=== PATIENT | male | born 1970 | race Caucasian/White ===

== ENCOUNTER 2017-11-02 13:12 | Observation (INO) ==
[2017-11-02] MEDS ORDERED: SALINE FLUSH 10ml SYRINGE IV ONE (13:30)
[2017-11-02] MEDS ORDERED: MIDAZOLAM 2mg/2ml INJECTION IVP ONE (13:30)
[2017-11-02] MEDS ORDERED: FentaNYL 100 MCG/2 ML INJECTION IVP ONE (13:30)
--- OUTSIDE RECORDS SUMMARY | 2017-11-02 13:38 | External Medical Summary ---
:1970 Author Organization [email or web address] Care Team Providers Name Role Phone Joel Núñez Provider Role Unavailable Allergies No Known Allergies Problems Problem Type Condition Code Onset Dates Condition Status Problem Nondependent tobacco use disorder 305.1 Active Problem Hypertension, benign 401.1 Active Problem Unspecified venous (peripheral) 459.81 Active insufficiency Problem Type 2 diabetes mellitus without E11.9 Active complications Problem Essential (primary) hypertension I10 Active Problem Type 2 diabetes mellitus with E11.65 Active hyperglycemia Problem Morbid obesity 278.01 Active Problem Diabetes Mellitus Type 2, not stated 250.00 Active as uncontrolled Problem Other specified diabetes mellitus E13.9 Active without complications Problem Other anxiety states 300.09 Active Medications No Known Medications Results No Known Results Summary Purpose eClinicalWorks Submission
--- OUTSIDE RECORDS SUMMARY | 2017-11-02 13:38 | External Medical Summary ---
:1970 Author Organization [employer] Care Team Providers Name Role Quentin Batista Provider Role Unavailable Allergies, Adverse Reactions, Alerts Substance Reaction Event Type Codeine Phosphate nausea and vomiting Drug Allergy Problems Problem Type Condition Code Onset Dates Condition Status Assessment Morbid obesity 278.01 Active Assessment Nondependent tobacco use disorder 305.1 Active Problem Morbid obesity 278.01 Active Problem Diabetes Mellitus Type 2, not stated 250.00 Active as uncontrolled Problem Chronic airway obstruction, not 496 Active elsewhere classified Problem Nondependent tobacco use disorder 305.1 Active Assessment Diabetes Mellitus Type 2, not stated 250.00 Active as uncontrolled Problem Hypertension, benign 401.1 Active Problem Unspecified venous (peripheral) 459.81 Active insufficiency Medications Medication Code Code Instructions Start End Status Dosage System Date Date Glimepiride [facility] [address]-06 4 TAKE ONE TABLET BY MOUTH EVERY MORNING WITH BREAKFAST OR FIRST MAIN MEAL OF THE DAY Blood Glucose [facility] [address]-90 1 finger as Oct 04, as directed Meter directed 2013 Lisinopril [facility] [address]-12 20 MG Orally January 21, 1 tablet Once a day 2014 Metformin HCl [facility] 72852355178 1,000 TAKE ONE TABLET BY MOUTH WITH FOOD TWO TIMES A DAY Elaine Contour [facility] [address]-54 1 In Vitro Jun 13, as directed Next Test twice a day 2013 Lantus [facility] [address]-83 100 UNIT/ML 50 units SoloStar Subcutaneous daily at night Procedures Procedure Coding System Code Date [facility] visit New Patient CPT-4 G0466 January 30, 2015 [facility] visit Established Patient CPT-4 G0467 January 30, 2015 HEMOGLOBIN A1C, IN HOUSE CPT-4 19413 January 30, 2015 OFFICE VISIT, EST-LOW COMPLEXITY (15 MIN.) CPT-4 56300 January 30, 2015 Vital Signs Date/Time: January 30, 2015 Height 65 in Weight 401.5 lbs Temperature 97.8 F Blood Pressure Diastolic 88 mm Hg Blood Pressure Systolic 134 mm Hg Cardiac Monitoring Heart Rate 60 /min BMI 66.81 Index Respiratory Rate 20 /min Results No Known Results Summary Purpose eClinicalWorks Submission
--- OUTSIDE RECORDS SUMMARY | 2017-11-02 13:38 | External Medical Summary ---
:1970 Author Organization [employer] Care Team Providers Name Role Phone Joel Núñez Provider Role Unavailable Allergies, Adverse Reactions, Alerts Substance Reaction Event Type Codeine Phosphate nausea and vomiting Drug Allergy Problems Problem Type Condition ICD-9 Code Onset Dates Condition Status Assessment Umbilical hernia without mention 553.1 Active of obstruction or gangrene Assessment Other anxiety states 300.09 Active Problem Chronic airway obstruction, not 496 Active elsewhere classified Problem Morbid obesity 278.01 Active Problem Other anxiety states 300.09 Active Problem Unspecified venous (peripheral) 459.81 Active insufficiency Problem Nondependent tobacco use 305.1 Active disorder Problem Diabetes Mellitus Type 2, not 250.00 Active stated as uncontrolled Problem Hypertension, benign 401.1 Active Medications Medication Code Code Instructions Start End Status Dosage System Date Date Lisinopril [facility] [address]-81 20 MG Orally January 21, 1 tablet Once a day 2014 Glimepiride [facility] [address]-44 4 TAKE ONE TABLET BY MOUTH EVERY MORNING WITH BREAKFAST OR FIRST MAIN MEAL OF THE DAY Elaine Contour [facility] [address]-18 1 In Vitro Jun 13, as directed Next Test twice a day 2013 Metformin HCl [facility] 13120356665 1,000 TAKE ONE TABLET BY MOUTH WITH FOOD TWO TIMES A DAY Lantus [facility] [address]-12 100 UNIT/ML 40 units SoloStar Subcutaneous daily at morning Blood Glucose [facility] [address]-62 1 finger as Oct 04, as directed Meter directed 2013 Procedures Procedure Coding System Code Date OFFICE VISIT, EST-LOW COMPLEXITY (15 MIN.) CPT-4 80616 May 23, 2015 [facility] visit Established Patient CPT-4 G0467 May 23, 2015 Vital Signs Date/Time: May 23, 2015 Height 65 in Weight 398.0 lbs Temperature 98.0 F Blood Pressure Diastolic 84 mm Hg Blood Pressure Systolic 136 mm Hg Cardiac Monitoring Heart Rate 77 /min BMI 66.22 Index Oximetry 96 % Respiratory Rate 20 /min Results No Known Results Summary Purpose eClinicalWorks Submission
--- OUTSIDE RECORDS SUMMARY | 2017-11-02 13:38 | External Medical Summary ---
:1970 Author Organization [employer] Care Team Providers Name Role Phone Joel Núñez Provider Role Unavailable Allergies No Known Allergies Problems Problem Type Condition Code Onset Dates Condition Status Assessment Other specified diabetes mellitus E13.9 Active without complications Problem Other anxiety states 300.09 Active Problem Morbid obesity 278.01 Active Problem Other specified diabetes mellitus E13.9 Active without complications Problem Unspecified venous (peripheral) 459.81 Active insufficiency Problem Nondependent tobacco use disorder 305.1 Active Problem Diabetes Mellitus Type 2, not stated 250.00 Active as uncontrolled Problem Hypertension, benign 401.1 Active Medications Medication Code Code Instructions Start End Status Dosage System Date Date Elaine Contour [facility] [address]-23 1 In Vitro Jun 13, as directed Next Test twice a day 2013 Blood Glucose [facility] [address]-37 1 finger as Oct 04, as directed Meter directed 2013 Lisinopril [facility] [address]-66 20 MG Orally January 21, 1 tablet Once a day 2014 Lantus [facility] [address]-34 100 UNIT/ML 40 units SoloStar Subcutaneous daily at morning Metformin HCl [facility] 80774705798 1,000 Orally TAKE 1 TAB Twice a day, Pt WITH FOOD will need an TWO TIMES A appointment DAY within the next month at [facility] for future refills Glimepiride [facility] [address]-19 4 MG Orally TAKE ONE TABLET BY MOUTH EVERY MORNING WITH BREAKFAST OR FIRST MAIN MEAL OF THE DAY Procedures Procedure Coding System Code Date TSH CPT-4 83274 Nov 01, 2015 URINALYSIS WITH MICROSCOPIC CPT-4 31683 Nov 01, 2015 COMPLETE CBC W/AUTO DIFF WBC CPT-4 28935 Nov 01, 2015 Results No Known Results Summary Purpose eClinicalWorks Submission
--- OUTSIDE RECORDS SUMMARY | 2017-11-02 13:38 | External Medical Summary ---
:1970 Author Organization [employer] Care Team Providers Name Role Phone Joel Núñez Provider Role Unavailable Allergies No Known Allergies Problems Problem Type Condition Code Onset Dates Condition Status Problem Unspecified venous (peripheral) 459.81 Active insufficiency Problem Nondependent tobacco use disorder 305.1 Active Problem Essential (primary) hypertension I10 Active Problem Other specified diabetes mellitus E13.9 Active without complications Problem Type 2 diabetes mellitus without E11.9 Active complications Problem Diabetes Mellitus Type 2, not stated 250.00 Active as uncontrolled Problem Hypertension, benign 401.1 Active Problem Other anxiety states 300.09 Active Problem Morbid obesity 278.01 Active Medications Medication Code System Code Instructions Start End Date Status Dosage Date Acetic Acid [facility] 79989-531 2 % Otic three Jun 26, Jun 14, 3 drops into 8-41 times a day 2015 2015 affected ear Results No Known Results Summary Purpose eClinicalWorks Submission
--- OUTSIDE RECORDS SUMMARY | 2017-11-02 13:38 | External Medical Summary ---
:1970 Author Organization [employer] Care Team Providers Name Role Phone Quentin Lynn Provider Role Unavailable Allergies No Known Allergies Problems Problem Type Condition ICD-9 Code Onset Dates Condition Status Problem Morbid obesity 278.01 Active Problem Diabetes Mellitus Type 2, not 250.00 Active stated as uncontrolled Problem Chronic airway obstruction, not 496 Active elsewhere classified Problem Nondependent tobacco use 305.1 Active disorder Problem Hypertension, benign 401.1 Active Problem Unspecified venous (peripheral) 459.81 Active insufficiency Medications Medication Code System Code Instructions Start Date End Date Status Dosage Glimepiride [facility]NOTE 2] 59644-310 4 TAKE ONE 6-01 TABLET BY MOUTH EVERY MORNING WITH BREAKFAST OR FIRST MAIN MEAL OF THE DAY Results No Known Results Summary Purpose eClinicalWorks Submission
--- OUTSIDE RECORDS SUMMARY | 2017-11-02 13:38 | External Medical Summary ---
:1970 Author Organization [employer] Care Team Providers Name Role Phone Joel Núñez Provider Role Unavailable Allergies, Adverse Reactions, Alerts Substance Reaction Event Type Codeine Phosphate nausea and vomiting Drug Allergy Problems Problem Type Condition Code Onset Dates Condition Status Assessment Type 2 diabetes mellitus without E11.9 Active complications Problem Unspecified venous (peripheral) 459.81 Active [...] 300.09 Active Problem Morbid obesity 278.01 Active Assessment Abnormal results of liver function R94.5 Active studies Assessment Hyperlipidemia, unspecified E78.5 Active Assessment Essential (primary) hypertension I10 Active Medications Medication Code Code Instructions Start End Date Status [place] [address]-61 20 MG Orally January 21, 1 tablet 68-01 Once a day 2014 [place] [address]-25 4 MG Orally Once take one 56-01 a day tablet by mouth every morning with breakfast or first [place] [address]-07 1 In Vitro twice Jun 13, as directed Next Test 25 a day [place] [address]-13 1 finger as Oct 04, as directed Meter 03- directed 2013 Metformin HCl NDC 78399-46 1000 MG Orally take one 14-01 Twice a day tablet by mouth twice [place] [address]-35 100 UNIT/ML 10 units 19-05 Subcutaneous Once a day Procedures Procedure Coding System Code Date OFFICE VISIT, EST-LOW COMPLEXITY (15 MIN.) CPT-4 79644 May 12, 2016 [facility] visit Established Patient CPT-4 G0467 May 12, 2016 Vital Signs Date/Time: May 12, 2016 Temperature 98.2 F Height 65 in Weight 394.8 lbs Blood Pressure Diastolic 82 mm Hg Blood Pressure Systolic 122 mm Hg Cardiac Monitoring Heart Rate 87 /min BMI 65.69 Index Oximetry 95 % Results No Known Results Summary Purpose eClinicalWorks Submission
--- OUTSIDE RECORDS SUMMARY | 2017-11-02 13:38 | External Medical Summary ---
:1970 Author Organization [employer]Works Care Team Providers Name Role Phone Quentin Lynn Provider Role Unavailable Allergies No Known Allergies Problems Problem Type Condition Code Onset Dates Condition Status Problem Morbid obesity 278.01 Active Problem Diabetes Mellitus Type 2, not stated 250.00 Active as uncontrolled Problem Chronic airway obstruction, not 496 Active elsewhere classified Problem Nondependent tobacco use disorder 305.1 Active Problem Hypertension, benign 401.1 Active Problem Unspecified venous (peripheral) 459.81 Active insufficiency Medications Medication Code System Code Instructions Start Date End Date Status Dosage Lisinopril [facility] [address] 20 MG Orally Once January 21, 1 tablet -01 a day 2014 Results No Known Results Summary Purpose eClinicalWorks Submission
--- OUTSIDE RECORDS SUMMARY | 2017-11-02 13:38 | External Medical Summary ---
:1970 Author Organization [employer] Care Team Providers Name Role Quentin Batista Provider Role Unavailable Allergies, Adverse Reactions, Alerts Substance Reaction Event Type Codeine Phosphate nausea and vomiting Drug Allergy Problems Problem Type Condition Code Onset Dates Condition Status Assessment Nondependent tobacco use disorder 305.1 Active Assessment Diabetes Mellitus Type 2, not stated 250.00 Active as uncontrolled Assessment Unspecified venous (peripheral) 459.81 Active insufficiency Assessment Chronic airway obstruction, not 496 Active elsewhere classified Problem Morbid obesity 278.01 Active Problem Diabetes Mellitus Type 2, not stated 250.00 Active as uncontrolled Problem Chronic airway obstruction, not 496 Active elsewhere classified Problem Nondependent tobacco use disorder 305.1 Active Assessment Morbid obesity 278.01 Active Problem Hypertension, benign 401.1 Active Problem Unspecified venous (peripheral) 459.81 Active insufficiency Medications Medication Code Code Instructions Start End Date Status D[place] [address]-61 4 TAKE ONE 56-01 TABLET BY MOUTH EVERY MORNING WITH BREAKFAST OR FIRST MAIN ME[place] [address]-67 100 UNIT/ML 50 units 19-05 [place] [address]-42 20 MG Orally Jun 15, 1 tablet 68-01 Once a day 2013 Blood Glucose [facility] 320[address]-15 1 finger as Oct 04, as directed Meter 11-18 [place] 2013 [place] [address]-33 1000 MG Orally Oct 17, 1 tablet 14-01 Twice a day 2014 [place] [address]-25 1 In Vitro twice Jun 13, as directed Next Test 10-25 a day 2013 Procedures Procedure Coding System Code Date OFFICE VISIT, EST-MOD. COMPLEXITY (25 MIN) CPT-4 58649 December 26, 2014 [facility] visit Established Patient CPT-4 G0467 December 26, 2014 Vital Signs Date/Time: December 26, 2014 Height 65 in Weight 404 lbs Temperature 98.0 F Blood Pressure Diastolic 78 mm Hg Blood Pressure Systolic 110 mm Hg Cardiac Monitoring Heart Rate 79 /min BMI 67.22 Index Oximetry 96 % Respiratory Rate 20 /min Results No Known Results Summary Purpose eClinicalWorks Submission
--- OUTSIDE RECORDS SUMMARY | 2017-11-02 13:38 | External Medical Summary ---
:1970 Author Organization eClinicalWorks Care Team Providers Name Role Phone Joel Núñez Provider Role Unavailable Allergies, Adverse Reactions, Alerts Substance Reaction Event Type Codeine Phosphate nausea and vomiting Drug Allergy Problems Problem Type Condition Code Onset Dates Condition Status Assessment Essential (primary) hypertension I10 Active Assessment Other specified diabetes mellitus E13.9 Active without complications Assessment Umbilical hernia without obstruction K42.9 Active or gangrene Assessment Chronic obstructive pulmonary J44.9 Active disease, unspecified Problem Other anxiety states 300.09 Active Problem Morbid obesity 278.01 Active Problem Other specified diabetes mellitus E13.9 Active without complications Problem Unspecified venous (peripheral) 459.81 Active insufficiency Problem Nondependent tobacco use disorder 305.1 Active Problem Diabetes Mellitus Type 2, not stated 250.00 Active as uncontrolled Problem Hypertension, benign 401.1 Active Medications Medication Code Code Instructions Start End Status Dosage System Date Date Lantus [facility] [address]-06 100 UNIT/ML 40 units SoloStar Subcutaneous daily at morning Lisinopril [facility] [address]-52 20 MG Orally January 21, 1 tablet Once a day [address] [facility] [address]-61 1 In Vitro Jun 13, as directed Next Test twice a day [address] [facility] 28004917185 1,000 Orally TAKE 1 TAB Twice a day, Pt WITH FOOD will need an TWO TIMES A appointment DAY within the next month at [facility] for future refills Glimepiride [facility] [address]-63 4 MG Orally TAKE ONE TABLET BY MOUTH EVERY MORNING WITH BREAKFAST OR FIRST MAIN MEAL OF THE DAY Blood Glucose [facility] [address]-65 1 finger as Oct 04, as directed Meter directed 2013 Procedures Procedure Coding System Code Date OFFICE VISIT, EST-MOD. COMPLEXITY (25 MIN) CPT-4 30286 Nov 01, 2015 HEMOGLOBIN A1C, IN HOUSE CPT-4 47673 Nov 01, 2015 [facility] visit Established Patient CPT-4 G0467 Nov 01, 2015 Vital Signs Date/Time: Nov 01, 2015 Height 65 in Weight 394.4 lbs Temperature 97.5 F Blood Pressure Diastolic 86 mm Hg Blood Pressure Systolic 128 mm Hg Cardiac Monitoring Heart Rate 94 /min BMI 65.62 Index Oximetry 96 % Respiratory Rate 20 /min Results No Known Results Summary Purpose eClinicalWorks Submission
--- OUTSIDE RECORDS SUMMARY | 2017-11-02 13:39 | External Medical Summary ---
:1970 Author Organization eClinicalWorks Care Team Providers Name Role Phone Joel Núñez Provider Role Unavailable Allergies, Adverse Reactions, Alerts Substance Reaction Event Type Codeine Phosphate nausea and vomiting Drug Allergy Problems Problem Type Condition Code Onset Dates Condition Status Assessment Unspecified otitis externa, left ear H60.92 Active Problem Unspecified venous (peripheral) 459.81 Active insufficiency Problem Nondependent tobacco use disorder 305.1 Active Assessment Abnormal results of liver function R94.5 Active studies Assessment Otitis media, unspecified, left ear H66.92 Active Problem Essential (primary) hypertension I10 Active Problem Other specified diabetes mellitus E13.9 Active without complications Problem Type 2 diabetes mellitus without E11.9 Active complications Problem Diabetes Mellitus Type 2, not stated 250.00 Active as uncontrolled Problem Hypertension, benign 401.1 Active Problem Other anxiety states 300.09 Active Problem Morbid obesity 278.01 Active Medications Medication Code Code Instructions Start End Date Status Dosage System Date Elaine Contour [facility] 60267-76 1 In Vitro twice Jun 13, as directed Next Test 07-14 a day 2013 Blood Glucose [facility] 59958-07 1 finger as Oct 04, as directed Meter 11-18 directed 2013 Lisinopril [facility] 03258-06 20 MG Orally January 21, 1 tablet 68-01 Once a day 2014 [place] [address]-88 875 MG Orally Jun 19, 1 tablet 64-01 Twice a day 2015 [place] [address]-38 81 MG Orally May 12, 1 tablet 74-68 Once a day 2016 Metformin HCl NDC 73810-49 1000 MG Orally take one 14-01 Twice a day tablet by mouth twice a day with food Glimepiride NDC 59351-21 4 MG Orally Once take one 56-01 a day tablet by mouth every morning with breakfast or first main meal of the day Aspirin NDC 03800-90 81 MG Orally 1 tablet 74-68 Once a day Ciprodex [facility] 16500-54 0.3-0.1 % Otic Jun 19, 4 drops into -02 Twice a day 2015 affected ear Lantus SoloStar [facility] 91728-35 100 UNIT/ML 10 units 19-05 Subcutaneous Once a day Procedures Procedure Coding System Code Date OFFICE VISIT, EST-LOW COMPLEXITY (15 MIN.) CPT-4 95304 Jun 19, 2016 [facility] visit Established Patient CPT-4 G0467 Jun 19, 2016 Vital Signs Date/Time: Jun 19, 2016 Temperature 98.3 F Height 65 in Weight 393 lbs Blood Pressure Diastolic 84 mm Hg Blood Pressure Systolic 128 mm Hg Cardiac Monitoring Heart Rate 83 /min BMI 65.39 Index Oximetry 95 % Results No Known Results Summary Purpose eClinicalWorks Submission
--- OUTSIDE RECORDS SUMMARY | 2017-11-02 13:39 | External Medical Summary | Continuity of Care Document ---
:1970 Author Organization [facility] Allergies Active Description Code Type Severity Reaction Onset Reported/ Identified Relationship Clinical to Patient Status Yes No Known NKMA N/A N/A Medication Allergies Medications There is no data. Problems Date Dx Attending Type Code Diagnosis Diagnosed By Coded 07/25/2015 JESSICA ROBERT B95.2 Enterococcus as the MALLIKA LOPEZ MD cause of diseases MALLIKA D classified elsewhere 07/25/2015 JESSICA ROBERT B95.3 Streptococcus MALLIKA LOPEZ MD pneumoniae as the MALLIKA D cause of diseases classified elsewhere 07/25/2015 JESSICA ROBERT, B96.89 Other specified MALLIKA LOPEZ MD bacterial agents as MALLIKA D the cause of diseases classified elsewhere 07/25/2015 JESSICA ROBERT, E11.51 Type 2 diabetes MALLIKA LOPEZ MD mellitus with MALLIKA Lilian diabetic peripheral angiopathy without gangrene 07/25/2015 JESSICA ROBERT, E66.01 Morbid (severe) MALLIKA LOPEZ MD obesity due to MALLIKA D excess calories 07/25/2015 JESSICA ROBERT, T81.4XXA Infection following MALLIKA LOPEZ MD a procedure, initial MALLIKA D encounter 07/25/2015 JESSICA ROBERT, 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 MALLIKA D 07/25/2015 JESSICA ROBERT, 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 MALLIKA D 08/09/2015 JESSICA ROBERT, B95.2 Enterococcus as the MALLIKA LOPEZ MD cause of diseases MALLIKA D classified elsewhere 08/09/2015 JESSICA ROBERT B95.3 Streptococcus MALLIKA LOPEZ MD pneumoniae as the MALLIKA D cause of diseases classified elsewhere 08/09/2015 JESSICA ROBERT, B96.89 Other specified MALLIKA LOPEZ MD bacterial agents as MALLIKA D the cause of diseases classified elsewhere 08/09/2015 JESSICA ROBERT, E11.51 Type 2 diabetes MALLIKA LOPEZ MD mellitus with MALLIKA D diabetic peripheral angiopathy without gangrene 08/09/2015 JESSICA ROBERT, E66.01 Morbid (severe) MALLIKA LOPEZ MD obesity due to MALLIKA D excess calories 08/09/2015 JESSICA ROBERT, T81.4XXA Infection following MALLIKA LOPEZ MD a procedure, initial MALLIKA D encounter 08/09/2015 JESSICA ROBERT, 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 MALLIKA D 08/09/2015 JESSICA ROBERT Z79.4 correction (current) MALLIKA LOPEZ MD use of insulin MALLIKA D 08/26/2015 JESSICA ROBERT, B95.2 Enterococcus as the MALLIKA LOPEZ MD cause of diseases MALLIKA D classified elsewhere 08/26/2015 JESSICA ROBERT B95.3 Streptococcus MALLIKA LOPEZ MD pneumoniae as the MALLIKA D cause of diseases classified elsewhere 08/26/2015 JESSICA ROEBRT, B96.89 Other specified MALLIKA LOPEZ MD bacterial agents as MALLIKA D the cause of diseases classified elsewhere 08/26/2015 JESSICA ROBERT, E11.51 Type 2 diabetes MALLIKA LOPEZ MD mellitus with MALLIKA D diabetic peripheral angiopathy without gangrene 08/26/2015 JESSICA ROBERT, E66.01 Morbid (severe) MALLIKA LOPEZ MD obesity due to MALLIKA D excess calories 08/26/2015 JESSICA ROBERT, T81.4XXA Infection following MALLIKA LOPEZ MD a procedure, initial MALLIKA D encounter 08/26/2015 JESSICA ROBERT, 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 MALLIKA D 08/26/2015 JESSICA ROBERT Z79.4 correction (current) MALLIKA LOPEZ MD use of insulin MALLIKA D 09/07/2015 JESSICA ROBERT, B95.3 Streptococcus MALLIKA LOPEZ MD pneumoniae as the MALLIKA D cause of diseases classified elsewhere 09/07/2015 JESSICA ROBERT, B95.7 Other staphylococcus MALLIKA LOPEZ MD as the cause of MALLIKA D diseases classified elsewhere 09/07/2015 JESSICA ROBERT, E11.51 Type 2 diabetes MALLIKA LOPEZ MD mellitus with MALLIKA D diabetic peripheral angiopathy without gangrene 09/07/2015 JESSICA ROBERT, M79.3 Panniculitis, MALLIKA LOPEZ MD unspecified AMLLIKA D 09/07/2015 JESSICA ROBERT, T81.4XXA Infection following MALLIKA LOPEZ MD a procedure, initial MALLIKA D encounter 09/07/2015 Srikanth LOPEZ MD79.2 correction (current) MALLIKA LOPEZ MD use of antibiotics MALLIKA D 09/07/2015 Srikanth LOPEZ MD79.4 correction (current) MALLIKA LOPEZ MD use of insulin MALLIKA D 09/18/2015 JESSICA ROBERT B95.3 Streptococcus MALLIKA LOPEZ MD pneumoniae as the MALLIKA D cause of diseases classified elsewhere 09/18/2015 JESSICA ROBERT B95.7 Other staphylococcus MALLIKA LOPEZ MD as the cause of MALLIKA D diseases classified elsewhere 09/18/2015 JESSICA ROBERT, E11.51 Type 2 diabetes MALLIKA LOPEZ MD mellitus with MALLIKA D diabetic peripheral angiopathy without gangrene 09/18/2015 JESSICA ROBERT M79.3 PanniculitisJESSICA MD, SHELLEY D unspecified MALLIKA D 09/18/2015 JESSICA ROBERT T81.4XXA Infection following MALLIKA LOPEZ MD a procedure, initial MALLIKA D encounter 09/18/2015 Srikanth LOPEZ MD79.2 correction (current) MALLIKA LOPEZ MD use of antibiotics MALLIKA D 09/18/2015 Srikanth LOPEZ MD79.4 correction (current) MALLIKA LOPEZ MD use of insulin MALLIKA D 09/26/2015 JESISCA ROBERT B95.2 Enterococcus as the MALLIKA LOPEZ MD cause of diseases MALLIKA D classified elsewhere 09/26/2015 JESSICA ROBERT B95.3 Streptococcus MALLIKA LOPEZ MD pneumoniae as the MALLIKA D cause of diseases classified elsewhere 09/26/2015 JESSICA ROBERT, E11.9 Type 2 diabetes MALLIKA LOPEZ MD mellitus without MALLIKA D complications 09/26/2015 JESSICA ROBERT M79.3 PanniculitisJESSICA MD, SHELLEY D unspecified MALLIKA D 09/26/2015 JESSICA ROBERT T81.4XXA Infection following MALLIKA LOPEZ MD a procedure, initial MALLIKA D encounter 09/26/2015 Srikanth LOPEZ MD79.2 correction (current) MALLIKA LOPEZ MD use of antibiotics MALLIKA D 09/26/2015 Srikanth LOPEZ MD79.4 correction (current) MALLIKA LOPEZ MD use of insulin MALLIKA D 10/09/2015 JESSICA ROBERT B95.2 Enterococcus as the MALLIKA LPOEZ MD cause of diseases MALLIKA D classified elsewhere 10/09/2015 JESSICA ROBERT, B95.3 Streptococcus MALLIKA LOPEZ MD pneumoniae as the MALLIKA D cause of diseases classified elsewhere 10/09/2015 JESSICA ROBERT, E11.9 Type 2 diabetes MALLIKA LOPEZ MD mellitus without MALLIKA D complications 10/09/2015 JESSICA RBOERT, M79.3 Panniculitis, MALLIKA LOPEZ MD unspecified MALLIKA D 10/09/2015 JESSICA ROBERT, R19.7 Diarrhea, MALLIKA LOPEZ MD unspecified MALLIKA D 10/09/2015 JESSICA ROBERT, T81.4XXA Infection following MALLIKA LOPEZ MD a procedure, initial MALLIKA D encounter 10/09/2015 JESSICA ROBERT 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 MALLIKA D 10/09/2015 JESSICA ROBERT 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 MALLIKA D 04/07/2016 JESSICA ROBERT, B95.3 Streptococcus MALLIKA LOPEZ MD pneumoniae as the MALLIKA D cause of diseases classified elsewhere 04/07/2016 JESSICA ROBERT, B95.7 Other staphylococcus MALLIKA LOPEZ MD as the cause of MALLIKA D diseases classified elsewhere 04/07/2016 JESSICA ROBERT, E11.51 Type 2 diabetes MALLIKA LOPEZ MD mellitus with MALLIKA D diabetic peripheral angiopathy without gangrene 04/07/2016 JESSICA ROBERT, M79.3 Panniculitis, MALLIKA LOPEZ MD unspecified MALLIKA D 04/07/2016 JESSICA ROBERT, T81.4XXA Infection following MALLIKA LOPEZ MD a procedure, initial MALLIKA D encounter 04/07/2016 JESSICA ROBERT 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 MALLIKA D 04/07/2016 JESSICA ROBERT Z79.4 correction (current) MALLIKA LOPEZ MD use of insulin MALLIKA D Procedures Code [place] [address] Office or MALLIKA LOPEZ MD 08/26/2015 other outpatient visit for the evaluation and management of [place] [address] Office or MALLIKA LOPEZ MD 10/24/2015 other outpatient visit for the evaluation and management of an established patient, which 10432 Office or MALLIKA LOPEZ MD 10/24/2015 other outpatient visit for the evaluation and management of an established patient, which [id number] Lynne or MALLIKA LOPEZ MD 11/25/2015 other outpatient visit for the evaluation and management of an established patient, which [id number] Lynne or MALLIKA LOPEZ MD 04/07/2016 other outpatient visit for the evaluation and management of an established patient, which [id number] Lynne or MALLIKA LOPEZ MD 05/05/2016 other outpatient visit for the evaluation and management of an established patient, which Results There is no data. Encounters ACCT No. Visit Discharge Status Pt. Type Provider Facility Loc./Unit Complaint Date/Time [id number] 06/26/2015 06/26/2015 CLS Outpatient Piotr [facility] New 1 WK KENY 47 09:42:00 23:59:59 , [facility] [id number] 06/18/2015 06/18/2015 DIS Outpatient Dale [facility] [place] Op 54 09:11:00 23:59:00 , [facility] [id number] 05/29/2015 05/29/2015 DIS Outpatient Piotr [facility] New CONS 60 14:28:00 23:59:00 , [facility] HERNIA [id number] 04/13/2016 04/13/2016 CLS Outpatient JESSICA ROBERT, 20:08:26 23:59:59 MALLIKA Quintana
--- OUTSIDE RECORDS SUMMARY | 2017-11-02 13:39 | External Medical Summary ---
[...] Start End Date Status [place] [address]-60 1000 MG Orally take one 14-01 Twice a day tablet by mouth twice a [place] [address]-69 100 UNIT/ML 10 units 19-05 Subcutaneous Once a day Aspirin NDC 34864-01 81 MG Orally May 12, 1 tablet 74-68 Once a day 2015 Blood Glucose [facility] 84825-64 1 finger as Oct 04, as directed Meter - directed 2013 [place] [address]-16 20 MG Orally January 21, 1 tablet 68-01 Once a day 2014 [place] [address]-86 4 MG Orally Once take one 56-01 a day tablet by mouth every morning with breakfast or first main meal of the day Aspirin NDC 51948-24 81 MG Orally 1 tablet 74-68 [place] [address]-40 1 In Vitro twice Jun 13, as directed Next Test 10-25 a day 2013 Procedures Procedure Coding System Code Date DUMMY CODE FOR NURSE VISIT CPT-4 DUMMY Jun 15, 2016 Results No Known Results Summary Purpose eClinicalWorks Submission
--- OUTSIDE RECORDS SUMMARY | 2017-11-02 13:39 | External Medical Summary ---
[...] Date Status [place] [address]-98 1 In Vitro twice Jun 13, as directed Next Test 10-25 a day 2013 [place] [address]-36 100 UNIT/ML 10 units 19-05 Subcutaneous Once a day Metformin HCl NDC 58947-84 1000 MG Orally take one 14-01 Twice a day tablet by mouth twice a day with food Aspirin NDC 52152-39 81 MG Orally May 12, 1 tablet 74-68 Once a day 2015 Aspirin NDC 36580-97 81 MG Orally 1 tablet 74-68 [place] [address]-26 4 MG Orally Once take one 56-01 a day tablet by mouth every morning with breakfast or first [place] the [place] [address]-80 20 MG Orally January 21, 1 tablet 68-01 Once a day 2014 Blood Glucose [facility] [address]0537-10 1 finger as Oct 04, as directed Meter 11-18 directed 2013 Results No Known Results Summary Purpose eClinicalWorks Submission
--- OUTSIDE RECORDS SUMMARY | 2017-11-02 13:39 | External Medical Summary ---
:1970 Author Organization [employer] Care Team Providers Name Role Phone Joel Núñez Provider Role Unavailable Allergies No Known Allergies Problems Problem Type Condition Code Onset Dates Condition Status Problem Other anxiety states 300.09 Active Problem Morbid obesity 278.01 Active Problem Other specified diabetes mellitus E13.9 Active without complications Problem Unspecified venous (peripheral) 459.81 Active insufficiency Problem Nondependent tobacco use disorder 305.1 Active Problem Diabetes Mellitus Type 2, not stated 250.00 Active as uncontrolled Problem Hypertension, benign 401.1 Active Medications No Known Medications Results No Known Results Summary Purpose eClinicalWorks Submission
--- OUTSIDE RECORDS SUMMARY | 2017-11-02 13:39 | External Medical Summary ---
[...] Start End Status Dosage System Date Date Metformin HCl [facility] 29850136355 1,000 Orally TAKE 1 TAB Twice a day, Pt WITH FOOD will need an TWO TIMES A appointment DAY within the next month at [facility] for future refills Glimepiride [facility] [address]-79 4 MG Orally TAKE ONE TABLET BY MOUTH EVERY MORNING WITH BREAKFAST OR FIRST MAIN MEAL OF THE DAY Lisinopril [facility] [address]-09 20 MG Orally January 21, 1 tablet Once a day 2014 Lantus [facility] [address]-98 100 UNIT/ML 40 units SoloStar Subcutaneous daily at morning Elaine Contour [facility] [address]-23 1 In Vitro Jun 13, as directed Next Test twice a day 2013 Blood Glucose [facility] [address]-29 1 finger as Oct 04, as directed Meter directed 2013 Procedures Procedure Coding System Code Date [facility] LIPID PANEL CPT-4 35277 Nov 01, 2015 [facility] MicroAlb/Creat Ratio, Urine CPT-4 15383 Nov 01, 2015 [facility] CMP CPT-4 80104 Nov 01, 2015 [facility] MicroAlb/Creat Ratio, Urine CPT-4 96595 Nov 01, 2015 Results No Known Results Summary Purpose eClinicalWorks Submission
--- OUTSIDE RECORDS SUMMARY | 2017-11-02 13:39 | External Medical Summary ---
:1970 Author Organization [employer] Care Team Providers Name Role Phone Joel Núñez Provider Role Unavailable Allergies No Known Allergies Problems Problem Type Condition Code Onset Dates Condition Status Problem Chronic airway obstruction, not 496 Active [...] Date Status Dosage System Date Metformin HCl [facility] 06695556546 1,000 Orally TAKE 1 Twice a day, Pt TAB WITH will need an FOOD TWO appointment TIMES A within the next DAY month at [facility] for future refills Results No Known Results Summary Purpose eClinicalWorks Submission
[2017-11-02] MEDS ORDERED: METOPROLOL 5mg/5ml INJECTION IVP PRN (13:50)
[2017-11-02 14:26] VITALS: BMI 58.3
[2017-11-02] MEDS: METOPROLOL 5mg/5ml INJECTION IVP SCH ×3 (14:32→22:29)
--- NOTE | 2017-11-02 14:54 | XRay Report ---
Indication: afib PROCEDURE: XR chest 1V: Encounter: Initial Comparison: July 30, 2015 Findings: Exam is somewhat limited due to portable technique and patient body habitus. Lungs are grossly clear. No pleural effusion or thorax. Cardiac silhouette is mildly enlarged. The mediastinal contours are stable. Pulmonary vascularity is normal. Impression: No acute cardiopulmonary disease. .
[2017-11-02] MEDS ORDERED: METOPROLOL 5mg/5ml INJECTION IVP ONE (17:19)
[2017-11-03] MEDS: METOPROLOL 5mg/5ml INJECTION IVP SCH ×3 (02:41→10:33)
[2017-11-03] MEDS ORDERED: SALINE FLUSH 10ml SYRINGE ONE (07:23)
[2017-11-03] MEDS ORDERED: FLECAINIDE 100 MG TABLET PO ONE (09:10)
[2017-11-03] MEDS: SALINE FLUSH 10ml SYRINGE IV PRN ×2 (10:33→20:58)
--- NOTE | 2017-11-03 10:42 | Transesophageal Echocardiogram ---
DATE OF PROCEDURE November 03, 2017 The patient is a pleasant 47-year-old gentleman with atrial fibrillation of unknown duration and rapid ventricular rate and was admitted and referred for further evaluation by transesophageal echocardiogram and cardioversion. Informed consent was obtained after explaining the procedure and the potential risks to the patient who agreed to proceed with the procedure. PROCEDURE 1. Transesophageal echocardiogram. 2. DC cardioversion. TECHNIQUE Conscious sedation was performed using Versed and fentanyl. Cetacaine spray was used for pharyngeal anesthesia. Probe was advanced into the esophagus and stomach and images were obtained in multiple planes. Left atrium is dilated. Left ventricular end-diastolic dimension is normal. Left ventricle wall thickness is normal. LV systolic function is normal with ejection fraction of about 55%. There is no thrombus in left atrium, left atrial appendage or left ventricle. Right atrium is normal. Right ventricle is normal. Mitral valve is morphologically normal with mild mitral regurgitation. Aortic valve is a trileaflet structure with no stenosis or insufficiency. Tricuspid valve shows mild tricuspid regurgitation with normal morphology. Pulmonary valve appears to be normal. There is no pericardial effusion. Agitated saline was injected which showed no evidence of right-to- left shunt. Descending thoracic aorta shows very mild atherosclerosis. IMPRESSION 1. Left atrial dilation. 2. No intracardiac thrombus or mass. 3. Normal LV systolic function with ejection fraction of about 55%. 4. Mild mitral regurgitation. 5. Mild tricuspid regurgitation. 6. Very mild atherosclerosis of the descending thoracic aorta. After reviewing the images we decided to proceed with cardioversion. Anterior- posterior Zoll pads were applied. 360 joules of energy was delivered in synchronized manner and patient converted from atrial fibrillation into sinus rhythm. He tolerated the procedure well with no complications. IMPRESSION 1. Successful DC cardioversion of atrial fibrillation to sinus rhythm. Will start him on antiarrhythmics and continue anticoagulation. [facility]
[2017-11-03] MEDS: FLECAINIDE 50 MG TABLET PO SCH (20:58)
[2017-11-04 00:31] VITALS: RESP 18
[2017-11-04] MEDS: FLECAINIDE 50 MG TABLET PO SCH (09:06)
[2017-11-04 09:11] VITALS: BP 155/96; PULSE 80; TEMP 96.2; O2SAT 94
[2017-11-04] MEDS ORDERED: METFORMIN 500 MG TABLET PO SCH (10:30)
[2017-11-04] MEDS ORDERED: LISINOPRIL 20 MG TABLET PO SCH (10:30)
--- NOTE | 2017-11-04 10:42 | Discharge Summary ---
<Loida Lynch - Last Filed: 11/04/17 10:34> Discharge Information Date of admission: 11/02/17 13:29 Anticipated date of discharge: 11/04/17 Attending Physician: Raymond White MD Primary care physician: Joel Núñez DO Consults: 11/02/17 17:33 [facility] Consult [CONS] Routine - Procedures Procedures: Date of Exam: 11/03/17 Type of Exam(s): US robert w/ doppler DATE OF PROCEDURE November 03, 2017 The patient is a pleasant 47-year-old gentleman with atrial fibrillation of unknown duration and rapid ventricular rate and was admitted and referred for further evaluation by transesophageal echocardiogram and cardioversion. Informed consent was obtained after explaining the procedure and the potential risks to the patient who agreed to proceed with the procedure. PROCEDURE 1. Transesophageal echocardiogram. 2. DC cardioversion. TECHNIQUE Conscious sedation was performed using Versed and fentanyl. Cetacaine spray was used for pharyngeal anesthesia. Probe was advanced into the esophagus and stomach and images were obtained in multiple planes. Left atrium is dilated. Left ventricular end-diastolic dimension is normal. Left ventricle wall thickness is normal. LV systolic function is normal with ejection fraction of about 55%. There is no thrombus in left atrium, left atrial appendage or left ventricle. Right atrium is normal. Right ventricle is normal. Mitral valve is morphologically normal with mild mitral regurgitation. Aortic valve is a trileaflet structure with no stenosis or insufficiency. Tricuspid valve shows mild tricuspid regurgitation with normal morphology. Pulmonary valve appears to be normal. There is no pericardial effusion. Agitated saline was injected which showed no evidence of right-to- left shunt. Descending thoracic aorta shows very mild atherosclerosis. IMPRESSION 1. Left atrial dilation. 2. No intracardiac thrombus or mass. 3. Normal LV systolic function with ejection fraction of about 55%. 4. Mild mitral regurgitation. 5. Mild tricuspid regurgitation. 6. Very mild atherosclerosis of the descending thoracic aorta. After reviewing the images we decided to proceed with cardioversion. Anterior- posterior Zoll pads were applied. 360 joules of energy was delivered in synchronized manner and patient converted from atrial fibrillation into sinus rhythm. He tolerated the procedure well with no complications. IMPRESSION 1. Successful DC cardioversion of atrial fibrillation to sinus rhythm. Will start him on antiarrhythmics and continue anticoagulation. - Laboratory Labs: 11/04/17 04:44 11/04/17 04:44 History of Present Illness HPI: The patient is a pleasant 47-year-old gentleman with atrial fibrillation of unknown duration and rapid ventricular rate and was admitted and referred for further evaluation by transesophageal echocardiogram and cardioversion. Hospital Course This is a general summary of the patient's hospital course. For more details refer to the complete medical record. Hospital course: Started on Flecainide 100mg X1 then 50mg daily for antiarrhythmic therapy. Time spent with patient: 25 - 35 minutes Resuscitation Status: Full Code Exam Vital signs: Temperature 96.2 F L 11/04/17 09:10 Pulse Rate 80 11/04/17 09:10 Respiratory Rate 18 11/04/17 09:10 Blood Pressure 155/96 H 11/04/17 09:10 Pulse Oximetry 94 11/04/17 09:10 - Constitutional no acute distress, morbidly obese, cooperative - Routine HEENT Exam Head: Present: normocephalic ENT: Present: mucous membranes moist - Routine Neck Exam Absent: JVD, carotid bruit - Routine Chest/Breast/Axilla Exam Chest wall: Absent: tenderness - Routine Respiratory Exam Present: decreased breath sounds, CTA bilaterally - Routine Cardiovascular Exam Present: RRR, no murmur - Routine Abdominal Exam Present: soft, normoactive bowel sounds - Routine Extremities Exam Present: edema - Routine Skin Exam Present: intact, dry, warm - Routine Neurological Exam Present: alert, oriented X3 - Routine Psychiatric Exam Present: normal affect, normal thought process Results 11/04/17 04:44 11/04/17 04:44 CBC 11/04/17 Range/Units 04:44 WBC 10.8 (4.5-11.0) T/MM3 RBC 4.88 (4.50-5.90) M/MM3 Hgb 15.4 (13.5-17.5) GM/DL Hct 45.5 (41-53) % Plt Count 184 (130-400) T/MM3 Comprehensive Metabolic Panel 11/04/17 Range/Units 04:44 Sodium 141 (134-144) MEQ/L Potassium 4.1 (3.6-5) MEQ/L Chloride 101 (98-107) MEQ/L Carbon Dioxide 28 (22-30) MEQ/L BUN 15.0 D (9-20) MG/DL Creatinine 0.6 L (0.8-1.5) MG/DL Glucose 180 H (75-110) MG/DL Calcium 9.2 (8.4-10.2) MG/DL Intake and Output 11/03/17 11/04/17 11/04/17 22:59 06:59 14:59 Intake Total 400 / 400 100 / 100 240 / 240 Balance 400 / 400 100 / 100 240 / 240 Intake: Oral 400 / 400 100 / 100 240 / 240 Other: # Voids 1 2 Weight 364 lb 3.258 oz Patient Weight 11/05/17 06:59 Weight 364 lb 3.258 oz - Imaging and Cardiology EKG results: image reviewed Imaging & Cardiology Narrative: Date of Exam: 11/02/17 Ordering Provider: Raymond White MD Type of Exam(s): XR chest 1V Reason for Exam(s): afib Indication: afib PROCEDURE: XR chest 1V: Encounter: Initial Comparison: July 30, 2015 Findings: Exam is somewhat limited due to portable technique and patient body habitus. Lungs are grossly clear. No pleural effusion or thorax. Cardiac silhouette is mildly enlarged. The mediastinal contours are stable. Pulmonary vascularity is normal. Impression: No acute cardiopulmonary disease. 11/04/17 10:43 11/04/17 10:44 Date of Exam: 11/03/17 Type of Exam(s): US robert w/ doppler DATE OF PROCEDURE November 03, 2017 The patient is a pleasant 47-year-old gentleman with atrial fibrillation of unknown duration and rapid ventricular rate and was admitted and referred for further evaluation by transesophageal echocardiogram and cardioversion. Informed consent was obtained after explaining the procedure and the potential risks to the patient who agreed to proceed with the procedure. PROCEDURE 1. Transesophageal echocardiogram. 2. DC cardioversion. TECHNIQUE Conscious sedation was performed using Versed and fentanyl. Cetacaine spray was used for pharyngeal anesthesia. Probe was advanced into the esophagus and stomach and images were obtained in multiple planes. Left atrium is dilated. Left ventricular end-diastolic dimension is normal. Left ventricle wall thickness is normal. LV systolic function is normal with ejection fraction of about 55%. There is no thrombus in left atrium, left atrial appendage or left ventricle. Right atrium is normal. Right ventricle is normal. Mitral valve is morphologically normal with mild mitral regurgitation. Aortic valve is a trileaflet structure with no stenosis or insufficiency. Tricuspid valve shows mild tricuspid regurgitation with normal morphology. Pulmonary valve appears to be normal. There is no pericardial effusion. Agitated saline was injected which showed no evidence of right-to- left shunt. Descending thoracic aorta shows very mild atherosclerosis. IMPRESSION 1. Left atrial dilation. 2. No intracardiac thrombus or mass. 3. Normal LV systolic function with ejection fraction of about 55%. 4. Mild mitral regurgitation. 5. Mild tricuspid regurgitation. 6. Very mild atherosclerosis of the descending thoracic aorta. After reviewing the images we decided to proceed with cardioversion. Anterior- posterior Zoll pads were applied. 360 joules of energy was delivered in synchronized manner and patient converted from atrial fibrillation into sinus rhythm. He tolerated the procedure well with no complications. IMPRESSION 1. Successful DC cardioversion of atrial fibrillation to sinus rhythm. Will start him on antiarrhythmics and continue anticoagulation. Discharge Plan - Med Rec/Dispo Referrals/Follow Up: Raymond White MD [Physician] - 11/22/17 2:00 pm [facility] Instructions: A-fib (Atrial Fibrillation) (GEN) Prescriptions: New Flecainide [Tambocor] 50 mg PO BID #60 tab Continue Atorvastatin [Lipitor] 1 tab PO HS Lisinopril [Zestril] 20 mg PO DAILY Naproxen Sodium [Aleve] 220 mg PO PRN PRN PRN Reason: Pain Metoprolol Tartrate [Lopressor] 25 mg PO BIDWM Rivaroxaban [Xarelto] 20 mg PO WS Metformin HCl [Metformin HCl ER] 500 mg PO BID - Disposition 01 Discharged Home, Self-Care - Dismissal Complete Discharge Instructions are:: Complete <Raymond White - Last Filed: 11/08/17 10:43> Discharge Information Date of admission: 11/02/17 13:29 Attending Physician: Raymond White MD Primary care physician: Joel Núñez DO Consults: 11/02/17 17:33 [facility] Consult [CONS] Routine - Laboratory Labs: 11/04/17 04:44 11/04/17 04:44 Hospital Course This is a general summary of the patient's hospital course. For more details refer to the complete medical record. Exam Vital signs: Temperature 96.2 F L 11/04/17 09:10 Pulse Rate 80 11/04/17 09:10 Respiratory Rate 18 11/04/17 09:10 Blood Pressure 155/96 H 11/04/17 09:10 Pulse Oximetry 94 11/04/17 09:10 Results 11/04/17 04:44 11/04/17 04:44 Attestation Narriative - Attestation Attestation Narrative: 11/08/17 10:43 Recommendation After examining the patient I agree with the above assessment. I am involved in the formulation of the patient's plan of care.
[2017-11-04] MEDS ORDERED: ATORVASTATIN 10 MG TABLET PO SCH (21:00)
== END 2017-11-04 12:20 | disposition home or self-care (01) ==
LOC: MED
PROVIDERS: ADMIT Internal Medicine Cardiovascular Disease; ATTEND Internal Medicine Cardiovascular Disease